=== PATIENT | female | born 1965 | race Caucasian/White ===

== ENCOUNTER → 2019-12-11 12:02 | Outpatient (BNVA) | payer BC, SELFPAY | PROVIDERS: Visit Provider Nurse Practitioner Family | DX: E11.9 Type 2 diabetes mellitus without complications (principal) | CPT/HCPCS: 36416; 82962 ==

== ENCOUNTER → 2019-12-12 00:01 | Outpatient (BNVA) | payer BC, SELFPAY | PROVIDERS: PCP Nurse Practitioner Family; Visit Provider Nurse Practitioner Family | DX: E11.9 Type 2 diabetes mellitus without complications (principal); E78.2 Mixed hyperlipidemia; R53.83 Other fatigue; I10 Essential (primary) hypertension | CPT/HCPCS: 80053; 80061; 81001; 82306; 83036; 84443; 85025 ==

== ENCOUNTER → 2020-01-02 08:30 | Outpatient (BNVA) | payer BC, SELFPAY | PROVIDERS: PCP Nurse Practitioner Family; Visit Provider Nurse Practitioner Family | DX: I10 Essential (primary) hypertension (principal) | CPT/HCPCS: 36415; 80053; 83540; 83735; 85025 ==

== ENCOUNTER → 2020-01-26 12:03 | Outpatient (BNVA) | payer BC, SELFPAY | PROVIDERS: PCP Nurse Practitioner Family; Visit Provider Nurse Practitioner Family | DX: M79.673 Pain in unspecified foot (principal); E11.9 Type 2 diabetes mellitus without complications; M79.89 Other specified soft tissue disorders | CPT/HCPCS: 84550 ==

== ENCOUNTER → 2020-10-12 00:01 | Outpatient (BNVA) | payer BC, SELFPAY | PROVIDERS: PCP Nurse Practitioner Family; Visit Provider Nurse Practitioner Family | DX: N39.0 Urinary tract infection, site not specified (principal); R39.9 Unspecified symptoms and signs involving the genitourinary system; E11.9 Type 2 diabetes mellitus without complications; I10 Essential (primary) hypertension; E55.9 Vitamin D deficiency, unspecified; Z13.6 Encounter for screening for cardiovascular disorders; M10.9 Gout, unspecified | CPT/HCPCS: 81003; 87086 ==

== ENCOUNTER → 2021-06-27 12:14 | Outpatient (BNVA) | payer BC, SELFPAY | PROVIDERS: PCP Nurse Practitioner Family; Visit Provider Nurse Practitioner Family | DX: E11.9 Type 2 diabetes mellitus without complications (principal); M1A.9XX0 Chronic gout, unspecified, without tophus (tophi); I10 Essential (primary) hypertension; E78.2 Mixed hyperlipidemia; E55.9 Vitamin D deficiency, unspecified | CPT/HCPCS: 80053; 80061; 81003; 82306; 83036; 84443; 84550; 85025; 87077; 87086; 87184 ==

== ENCOUNTER → 2021-10-11 09:54 | Outpatient (BNVA) | payer BC, SELFPAY | PROVIDERS: PCP Nurse Practitioner Family; Visit Provider Registered Nurse | DX: M77.32 Calcaneal spur, left foot (principal); M79.672 Pain in left foot | CPT/HCPCS: 73630 ==

== ENCOUNTER → 2022-11-02 11:06 | Outpatient (BNVA) | payer BC, SELFPAY | PROVIDERS: PCP Nurse Practitioner; Visit Provider Nurse Practitioner | DX: E11.9 Type 2 diabetes mellitus without complications (principal); I10 Essential (primary) hypertension; E55.9 Vitamin D deficiency, unspecified | CPT/HCPCS: 80053; 80061; 82306; 83036; 85025 ==

== ENCOUNTER 2022-11-22 19:11 | Emergency (ER) | payer BC, SELFPAY ==
[2022-11-22 19:38] VITALS: BP 130/84; PULSE 71; RESP 18; TEMP 36.7; O2SAT 98; BMI 47.4
[2022-11-22 19:48] LABS: Basophils # 0.1 10^3/uL (0.0-0.1); Basophils % 0.9 %; Eosinophils # 0.2 10^3/uL (0.0-0.8); Eosinophils % 3.2 %; Hematocrit 46.7 % (37.0-47.0); Hemoglobin 14.7 g/dL (11.5-15.3); Lymphocytes # 1.5 10^3/uL (0.8-4.8); Lymphocytes % 22.3 %; Mean Corpuscular HGB Conc 31.5 g/dL (30.0-36.0); Mean Corpuscular Hemoglobin 26.7 pg (28.0-34.0); Mean Corpuscular Volume 84.9 fl (81-99); Mean Platelet Volume 10.8 fL (7.4-10.4); Monocytes # 0.3 10^3/uL (0.2-0.9); Monocytes % 4.3 %; Neutrophils # 4.51 10^3/uL (1.8-7.7); Nucleated Red Blood Cells % 0 %; Platelet Count 267 10^3/cmm (130-400); Red Cell Distribution Width 14.8 % (12.1-15.1); White Blood Count 6.5 10^3/uL (4.0-10.0)
[2022-11-22 20:28] LABS: Alanine Aminotransferase 26 U/L (0-33); Albumin Level 4.2 g/dL (3.5-5.2); Alkaline Phosphatase 85 U/L (35-105); Anion Gap 14.1 (5-19); Aspartate Amino Transferase 16 U/L (0-32); Blood Urea Nitrogen 20 mg/dL (6-20); Calcium 9.2 mg/dL (8.5-10.5); Carbon Dioxide 28 mmol/L (22-29); Chloride 103 mmol/L (98-107); Globulin 2.8 g/dL (1.3-4.6); Glomerular Filtration Rate 86.2 mL/min (90-130); Glucose 181 mg/dL (65-115); Lipase 30 U/L (13-60); Osmolality Calculated 299 mOsm/kg (285-295); Potassium 4.1 mmol/L (3.5-5.1); Sodium 141 mmol/L (136-145); Total Bilirubin 0.3 mg/dL (0.15-1.2)
[2022-11-22 20:41] VITALS: BP 167/57; PULSE 72; RESP 16; O2SAT 92
[2022-11-22 20:55] LABS: Protein Urine Neg (Negative); Urine Appearance Clear (CLEAR); Urine Color Yellow (Yellow); pH Urine 5 (5-7)
[2022-11-22 20:56] LABS: Add Urine Culture? Yes; Add Urine Microscopic? YES; Bacteria Urine 3+ /hpf; Bilirubin Urine Neg (Negative); Blood Urine Neg (Negative); Glucose Urine UA 4+ (Normal); Ketones Urine Negative (Negative); Leukocyte Esterase Urine 1+ (Negative); Nitrate Urine Negative (Negative); RBC Urine 0-4 /hpf (0-2); Urobilinogen Urine Norm (Negative)
--- NOTE | 2022-11-22 21:04 | ED_ITS ---
HPI - Abdominal Pain General: Chief Complaint: Abdominal Pain Stated Complaint: right abdomen pain, back pain Time Seen by Provider: 11/22/22 20:31 History of Present Illness: Patient presents to the ER with complaints of right upper quadrant right flank pain. She is unsure which one started first. The pain does get worse with eating's at times. Patient denies any changes to her bowel or bladder. Patient thinks it may be her gallbladder or kidney stone. MD elicited complaint: abdominal pain and flank pain Onset (ago): day(s) Pain Consistency: intermittent Location: RUQ Severity: moderate Quality: aching Radiation: none Migration to: no migration Exacerbating factors: nothing Relieving factors: nothing Associated Symptoms: Denies chills, diarrhea, fever(s), nausea and vomiting Review of Systems General: Reports: 10 or more systems reviewed and unremarkable except in HPI and below Const: Denies: fever(s) or chills Eyes: Denies: change in vision or blurry vision ENMT: Denies: throat pain or odynophagia Card: Denies: chest pain, palpitations or irregular heart rhythm Resp: Denies: dyspnea, productive cough or non-productive cough GI: Denies: abdominal pain, nausea, vomiting or diarrhea : Reports: flank pain Musc: Denies: neck pain or back pain Skin/Breast: Denies: rash or pruritus Neuro: Denies: headache(s), numbness in extremities or weakness in extremities Psych: Denies: anxiety or depression Endo: Denies: polyuria or polydipsia Arnulfo/Lymph: Denies: easy bruising or easy bleeding PFSH ED PFSH: Medical History Acute bacterial sinusitis COPD (chronic obstructive pulmonary disease) DM type 2 (diabetes mellitus, type 2) Essential hypertension Gout Hypertension screen Lower respiratory tract infection Mixed hyperlipidemia Otitis media Sinusitis, acute Swelling of left foot UTI symptoms Vitamin D deficiency Social History Smoking and tobacco status: never smoked Second hand smoke exposure: No Smoking risk assessment/counseling performed?: No Alcohol intake: never Desire information about alcohol rehabilitation?: No Counseling given: No Desire information about substance/drug rehabilitation?: No Counseling given: No Physical Exam Const: COMMON NORMALS: no acute distress, average body habitus, patient oriented x3, no limitations, healthy appearing, alert and well nourished HENMT: COMMON NORMALS: normocephalic, atraumatic, hearing grossly normal bilaterally, external ears normal, Normal external nose present and moist oral mucous membranes HEAD & SCALP: normocephalic and atraumatic NOSE: Normal external nose present EXTERNAL EAR: Yes external ears normal Neck/C-Spine: COMMON NORMALS: full ROM, no lymphadenopathy, supple, no meningeal signs, no JVD and Thyroid normal THYROID: Thyroid normal Lymph: LYMPHATIC: no lymphadenopathy noted Chest: COMMONS NORMALS: normal inspection of the chest and normal palpation of entire chest wall Resp: COMMON NORMALS: normal respiratory effort, No retractions, No use of accessory muscles and clear to auscultation bilaterally AUSCULTATION: clear to auscultation bilaterally Cardio: COMMON NORMALS: no JVD, regular rate, regular rhythm, S1 normal heart sound present, S2 normal heart sound present and No murmurs present (Cardio) RATE: regular rate RHYTHM: regular rhythm HEART SOUNDS: S1 normal heart sound present and S2 normal heart sound present GI: COMMON NORMALS: Normal to inspection, nondistended, normoactive bowel sounds present, Soft to palpation, non-tender, No hepatosplenomegaly present and no masses PALPATION: Yes Soft to palpation and Yes No hepatosplenomegaly present : COMMON NORMALS: Yes no CVA tenderness BLADDER/KIDNEY EXAM: Yes no CVA tenderness Back/Pelvis: COMMON NORMALS: no CVA tenderness Neuro: COMMON NORMALS: patient oriented x3 SENSORIUM/ORIENTATION: Yes alert MENINGEAL SIGNS: Yes no meningeal signs Course Vital Signs: Vital signs: Vital Signs Temperature 98.0 F 11/22/22 19:38 Pulse Rate 72 11/22/22 20:41 Respiratory Rate 16 11/22/22 20:41 Blood Pressure 167/57 11/22/22 20:41 Pulse Oximetry 92 11/22/22 20:41 Oxygen Delivery Me thod 11/22/22 20:41 MDM - Abdominal Pain Medical Decision Making Patient presents to the ER with complaints of abdominal pain and right flank pain. Patient states that sometimes gets worse with eating. Patient denies any changes to her bowel or bladder. Lab work and urine were obtained. Which shows patient does have a urinary tract infection. Patient did not have pain with palpation on her right upper quadrant or right flank pain. It was described in detail to the patient that she probably has a urinary tract infection and may be going up to a kidney infection. Patient will be treated with antibiotics and was told to push fluids. Patient will be discharged home to follow-up with her primary care physician in approximately 1 week or sooner if needed. Differential Diagnosis Likely abdominal pain Lab Data 11/22/22 19:33 11/22/22 19: Labs/Radiology: Laboratory Results WBC 6.5 10^3/uL (4.0-10.0) 11/22/22 19: RBC 5.50 10^6/uL (4.1-5.3) H 11/22/22 19: Hgb 14.7 g/dL (11.5-15.3) 11/22/22 19: Hct 46.7 % (37.0-47.0) 11/22/22 19: MCV 84.9 fl (81-99) 11/22/22 19: MCH 26.7 pg (28.0-34.0) L 11/22/22 19: MCHC 31.5 g/dL (30.0-36.0) 11/22/22 19: RDW 14.8 % (12.1-15.1) 11/22/22 19: Plt Count 267 10^3/cmm (130-400) 11/22/22 19: MPV 10.8 fL (7.4-10.4) H 11/22/22 19: Neut % (Auto) 69.0 % 11/22/22 19: Lymph % (Auto) 22.3 % 11/22/22 19:33 Sargent % (Auto) 4.3 % 11/22/22 19: Eos % (Auto) 3.2 % 11/22/22 19: Baso % (Auto) 0.9 % 11/22/22 19: Neut # (Auto) 4.51 10^3/uL (1.8-7.7) 11/22/22 19: Lymph # (Auto) 1.5 10^3/uL (0.8-4.8) 11/22/22 19: Sargent # (Auto) 0.3 10^3/uL (0.2-0.9) 04/05/23 19:33 Eos # (Auto) 0.2 10^3/uL (0.0-0.8) 11/22/22 19:33 Baso # (Auto) 0.1 10^3/uL (0.0-0.1) 11/22/22 19:33 Nucleated RBC % (auto) 0 % 11/22/22 19:33 Nucleated RBCs # 0.0 /100WBC 11/22/22 19:33 Sodium 141 mmol/L (136-145) 11/22/22 19:33 Potassium 4.1 mmol/L (3.5-5.1) 11/22/22 19:33 Chloride 103 mmol/L (98-107) 11/22/22 19:33 Carbon Dioxide 28 mmol/L (22-29) 11/22/22 19:33 Anion Gap 14.1 (5-19) 11/22/22 19:33 BUN 20 mg/dL (6-20) 11/22/22 19:33 Creatinine 0.7 mg/dL (0.5-0.9) 11/22/22 19:33 GFR Calculation 86.2 mL/min (90-130) L 11/22/22 19:33 Glucose 181 mg/dL (65-115) H 11/22/22 19:33 Calculated Osmolality 299 mOsm/kg (285-295) H 11/22/22 19:33 Calcium 9.2 mg/dL (8.5-10.5) 11/22/22 19:33 Total Bilirubin 0.3 mg/dL (0.15-1.2) 11/22/22 19:33 AST 16 U/L (0-32) 11/22/22 19:33 ALT 26 U/L (0-33) 11/22/22 19:33 Alkaline Phosphatase 85 U/L (35-105) 11/22/22 19:33 Total Protein 7.0 g/dL (6.6-8.7) 11/22/22 19:33 Albumin 4.2 g/dL (3.5-5.2) 11/22/22 19:33 Globulin 2.8 g/dL (1.3-4.6) 11/22/22 19:33 Lipase 30 U/L (13-60) 11/22/22 19:33 Urine Color Yellow (Yellow) 11/22/22 20:39 Urine Appearance Clear (CLEAR) 11/22/22 20:39 Urine pH 5 (5-7) 11/22/22 20:39 Ur Specific [place] 1.020 (1.005-1.030) 11/22/22 20:39 Urine Protein Neg (Negative) 11/22/22 20:39 Urine Glucose (UA) 4+ (Normal) H 11/22/22 20:39 Urine Ketones Negative (Negative) 11/22/22 20:39 Urine Blood Neg (Negative) 11/22/22 20:39 Urine Nitrate Negative (Negative) 11/22/22 20:39 Urine Bilirubin Neg (Negative) 11/22/22 20:39 Urine Urobilinogen Norm mg/dL (Negative) 11/22/22 20:39 Ur Leukocyte Esterase 1+ (Negative) H 11/22/22 20:39 Urine RBC 0-4 /hpf (0-2) H 11/22/22 20:39 Urine WBC 10-15 /hpf (0-5) H 11/22/22 20:39 Ur Squamous Epith Cells 5-10 /hpf (0-5) H 11/22/22 20:39 Amorphous Sediment Not Reportable 11/22/22 20:39 Urine Bacteria 3+ /hpf (NONE) H 11/22/22 20:39 Urine Yeast 1+ /hpf H 11/22/22 20:39 Discharge Plan Discharge Patient Disposition: Home Clinical Impression: Urinary tract infection Condition: Stable Prescriptions: New Cipro 500 mg tablet 500 mg PO BID Qty: 20 0RF No Action fluticasone propionate 50 mcg/actuation spray,suspension INTRANASAL lidocaine HCl [Xylocaine] 10 mg/mL (1 %) solution 1 ml IM ONCE Qty: 1 0RF Trelegy Ellipta 100-62.5-25 mcg blister with device 1 inh inhalation DAILY budesonide-formoterol [Symbicort] 160-4.5 mcg/actuation HFA aerosol inhaler 2 inh inhalation BID 90 Days Qty: 10.2 2RF cyclobenzaprine 10 mg tablet 10 mg PO .bedtime 30 Days Qty: 30 0RF Farxiga 10 mg tablet See Rx Instructions .ROUTE .COMPLEX Qty: 30 2RF Dose Instruction: TAKE 1 TABLET BY MOUTH EVERY DAY Rx Instructions: TAKE 1 TABLET BY MOUTH EVERY DAY hydrochlorothiazide 25 mg tablet See Rx Instructions .ROUTE .COMPLEX Qty: 30 2RF Dose Instruction: TAKE ONE TABLET BY MOUTH EVERY DAY Rx Instructions: TAKE ONE TABLET BY MOUTH EVERY DAY lisinopril 40 mg tablet See Rx Instructions .ROUTE .COMPLEX Qty: 30 2RF Dose Instruction: TAKE ONE TABLET BY MOUTH EVERY DAY Rx Instructions: TAKE ONE TABLET BY MOUTH EVERY DAY metoprolol tartrate 100 mg tablet See Rx Instructions .ROUTE .COMPLEX Qty: 60 2RF Dose Instruction: TAKE ONE TABLET BY MOUTH TWICE DAILY Rx Instructions: TAKE ONE TABLET BY MOUTH TWICE DAILY montelukast 10 mg tablet See Rx Instructions .ROUTE .COMPLEX Qty: 30 5RF Dose Instruction: TAKE ONE TABLET BY MOUTH DAILY Rx Instructions: TAKE ONE TABLET BY MOUTH DAILY pioglitazone 15 mg tablet See Rx Instructions .ROUTE .COMPLEX Qty: 30 2RF Dose Instruction: TAKE 1 TABLET BY MOUTH EVERY DAY FOR 30 DAYS Rx Instructions: TAKE 1 TABLET BY MOUTH EVERY DAY FOR 30 DAYS verapamil 80 mg tablet See Rx Instructions .ROUTE .COMPLEX Qty: 30 2RF Dose Instruction: TAKE ONE TABLET BY MOUTH EVERY DAY Rx Instructions: TAKE ONE TABLET BY MOUTH EVERY DAY Januvia 100 mg tablet See Rx Instructions .ROUTE .COMPLEX Qty: 30 2RF Dose Instruction: TAKE 1 TABLET BY MOUTH EVERY DAY FOR 30 DAYS Rx Instructions: TAKE 1 TABLET BY MOUTH EVERY DAY FOR 30 DAYS cholecalciferol (vitamin D3) 1,250 mcg (50,000 unit) capsule 1,250 mcg PO .weekly Qty: 30 2RF Discharge Orders: Discharge ED (Routine); Ordered 11/22/22 Ordered By: Rafael Gonzáles Referrals: Nicole Hollis FNP [Primary Care Provider] - 1 week Discharge Diet: Advance as tolerated Discharge Activity: Resume usual activity Patient Instructions: Flank Pain (ED), Kidney Infection (ED) Coding Level of Care Code ED Site Administrator for Jose M Dexter
[2022-11-22] MEDS: ciprofloxacin 500 mg Tablet PO (21:29)
[2022-11-22 21:32] VITALS: BP 148/69; PULSE 87; RESP 16; O2SAT 99
== END 2022-11-22 21:33 | disposition home or self-care (01) ==
PROVIDERS: Emergency Medicine; Emergency Provider Emergency Medicine; PCP Nurse Practitioner
DX: N39.0 Urinary tract infection, site not specified (principal); J44.9 Chronic obstructive pulmonary disease, unspecified; E11.9 Type 2 diabetes mellitus without complications; I10 Essential (primary) hypertension; E78.2 Mixed hyperlipidemia
CPT/HCPCS: 36415; 80053; 81001; 83690; 85025; 87086; 99283

== ENCOUNTER → 2023-07-10 10:31 | Outpatient (BNVA) | payer BC, SELFPAY | PROVIDERS: PCP Nurse Practitioner; Visit Provider Nurse Practitioner Family | DX: E11.9 Type 2 diabetes mellitus without complications (principal); I10 Essential (primary) hypertension; E78.2 Mixed hyperlipidemia; E55.9 Vitamin D deficiency, unspecified | CPT/HCPCS: 80053; 80061; 81003; 82306; 83036; 84443; 84550; 85025 ==

== ENCOUNTER → 2023-12-04 08:10 | Outpatient (BNVA) | payer BC, SELFPAY | PROVIDERS: PCP Nurse Practitioner Family; Visit Provider Nurse Practitioner Family | DX: E55.9 Vitamin D deficiency, unspecified (principal); E78.2 Mixed hyperlipidemia; E11.9 Type 2 diabetes mellitus without complications; I10 Essential (primary) hypertension; M10.9 Gout, unspecified | CPT/HCPCS: 80053; 80061; 81003; 82306; 83036; 84443; 84550; 85025 ==

== ENCOUNTER → 2024-03-20 08:57 | Outpatient (BNVA) | payer BC, SELFPAY | PROVIDERS: PCP Nurse Practitioner Family; Visit Provider Nurse Practitioner Family | DX: I10 Essential (primary) hypertension (principal); E78.2 Mixed hyperlipidemia; E11.9 Type 2 diabetes mellitus without complications; M1A.9XX0 Chronic gout, unspecified, without tophus (tophi) | CPT/HCPCS: 80053; 80061; 81003; 83036; 84443; 84550; 85025 ==

== ENCOUNTER 2024-04-23 13:49 | Outpatient (CLI) | payer BC, SELFPAY ==
--- NOTE | 2024-04-23 13:40 | MM_ITS ---
WS: [id number] BILATERAL 3D TOMOSYNTHESIS DIGITAL SCREENING MAMMOGRAPHY WITH CAD CLINICAL INFORMATION: Z12.31 - Encounter for screening mammogram for malignant ... HISTORY: Screening mammogram. No current complaints. COMPARISON: New baseline TECHNIQUE: Bilateral CC and MLO views. FINDINGS: Scattered fibroglandular densities bilaterally. Asymmetric density outer RIGHT breast measuring 8 mm. Recommend further evaluation with RIGHT breast diagnostic mammography and ultrasound. LEFT breast is unremarkable. MM/[place] [id number] IMPRESSION: DENSITY: There are scattered areas of fibroglandular density. BI-RADS: 0 - Incomplete: Need additional imaging evaluation. FOLLOW UP: Need Additional Imaging Recommend RIGHT breast diagnostic mammography and ultrasound.
== END 2024-04-23 13:50 | disposition home or self-care (01) ==
PROVIDERS: PCP Nurse Practitioner Family; Visit Provider Nurse Practitioner Family
DX: Z12.31 Encounter for screening mammogram for malignant neoplasm of breast (principal); R92.323 Mammographic fibroglandular density, bilateral breasts; N64.89 Other specified disorders of breast
CPT/HCPCS: 77063; 77067

== ENCOUNTER 2024-04-28 14:04 | Outpatient (CLI) | payer BC, SELFPAY ==
--- NOTE | 2024-04-28 14:13 | XR_ITS ---
WS: [id number] XR knee LT 3V* [id number] REASON FOR EXAM: M17.10 - Unilateral primary osteoarthritis, unspecified knee FINDINGS: No fracture or focal bone lesion. Moderate narrowing of the medial knee joint space with mild to moderate subchondral sclerosis and mar ginal osteophytosis. Minimal narrowing of the lateral knee joint space with mild subchondral sclerosis and osteophytosis. Mild to moderate narrowing of the patellofemoral joint space with moderate subchondral sclerosis and mild osteophytosis of the patella. XR/XR knee LT 3V* [id number] IMPRESSION: Moderate osteoarthritis of the left knee.
--- NOTE | 2024-04-28 14:13 | XR_ITS ---
WS: [id number] [id number] REASON FOR EXAM: M17.10 - Unilateral primary osteoarthritis, unspecified knee FINDINGS: RIGHT KNEE: No fracture or focal bone lesion. Mild narrowing of the medial knee joint space with minimal subchondral sclerosis. Minimal narrowing of the lateral knee joint space with small marginal osteophytosis and minimal subch ondral sclerosis. XR/[place] [id number] IMPRESSION: Mild osteoarthritis in the right knee based on one view. LEFT KNEE: No fracture or focal bone lesion. There is moderate narrowing of the medial knee joint space with mild to moderat e subchondral sclerosis and mild osteophytosis. There is minimal narrowing of the lateral knee joint space with mild subchondra l sclerosis and marginal osteophytosis. IMPRESSION: Mild to moderate osteoarthritis based on one view.
== END 2024-04-28 14:05 | disposition home or self-care (01) ==
LOC: RAD 14:04
PROVIDERS: PCP Nurse Practitioner Family; Visit Provider Nurse Practitioner Family
DX: M17.0 Bilateral primary osteoarthritis of knee (principal); S86.912A Strain of unspecified muscle(s) and tendon(s) at lower leg level, left leg, initial encounter; X58.XXXA Exposure to other specified factors, initial encounter; M1A.9XX0 Chronic gout, unspecified, without tophus (tophi)
CPT/HCPCS: 73562; 73565

== ENCOUNTER → 2024-10-16 10:43 | Outpatient (BNVA) | payer BC, SELFPAY | PROVIDERS: PCP Nurse Practitioner Family; Visit Provider Nurse Practitioner Family | DX: I10 Essential (primary) hypertension (principal); E78.2 Mixed hyperlipidemia; E11.9 Type 2 diabetes mellitus without complications; E55.9 Vitamin D deficiency, unspecified; M15.9 Polyosteoarthritis, unspecified; M1A.9XX0 Chronic gout, unspecified, without tophus (tophi) | CPT/HCPCS: 73130; 80053; 80061; 81003; 82306; 83036; 84443; 84550; 85025; 85651; 86038; 86141; 86200; 86431 ==

== ENCOUNTER 2024-11-18 11:21 | Outpatient (CLI) | payer BC, SELFPAY | END 2024-11-18 11:22 | disposition home or self-care (01) | LOC: SPT 11:22 | PROVIDERS: PCP Nurse Practitioner Family; Visit Provider Student in an Organized Health Care Education/Training Program | DX: Z46.89 Encounter for fitting and adjustment of other specified devices (principal); G56.02 Carpal tunnel syndrome, left upper limb | CPT/HCPCS: L3908 ==

== ENCOUNTER → 2025-02-25 08:54 | Outpatient (BNVA) | payer BC, SELFPAY | PROVIDERS: PCP Nurse Practitioner Family; Visit Provider Nurse Practitioner Family | DX: R30.0 Dysuria (principal) | CPT/HCPCS: 81003; 87086 ==

== ENCOUNTER 2025-06-01 14:15 | Outpatient (CLI) | payer BC, SELFPAY ==
--- NOTE | 2025-06-01 15:45 | US_ITS ---
WS: [id number] ULTRASOUND SOFT TISSUES RIGHT upper extremity. HISTORY: R22.30 - Localized swelling, mass and lump, unspecified u... COMPARISON: None available. TECHNIQUE: 2-D and color Doppler imaging is submitted. Ultrasound is performed over the area of redness and swelling. No obvious soft tissue abnormality is identified. There is no mass. No heterogeneous or homogeneous mass. No abscess. No skin thickening. US/US soft tissue/extremity [id number] IMPRESSION: Negative ultrasound localized to the medial RIGHT upper extremity in the area o f pain and swelling.
== END 2025-06-01 14:16 | disposition home or self-care (01) ==
LOC: RAD 14:16
PROVIDERS: PCP Nurse Practitioner Family; Visit Provider Nurse Practitioner Family
DX: R22.30 Localized swelling, mass and lump, unspecified upper limb (principal)
CPT/HCPCS: 76882

== ENCOUNTER → 2025-06-30 14:10 | Outpatient (BNVA) | payer BC, SELFPAY | PROVIDERS: PCP Nurse Practitioner Family; Visit Provider Nurse Practitioner Family | DX: E11.9 Type 2 diabetes mellitus without complications (principal); E55.9 Vitamin D deficiency, unspecified; M1A.9XX0 Chronic gout, unspecified, without tophus (tophi) | CPT/HCPCS: 80053; 80061; 82043; 83036; 84443; 85025 ==